=== PATIENT | female | born 1975 | race Caucasian/White ===

== ENCOUNTER → 2017-01-16 | Outpatient (CLI) | payer BC ==
--- NOTE | 2017-01-16 09:27 | XR ---
EXAMINATION TYPE: XR tibia fibula RT DATE OF EXAM: 01/16/2017 COMPARISON: NONE HISTORY: Pain TECHNIQUE: Two views are submitted. FINDINGS: The osseous structures are intact. The joint spaces are preserved. IMPRESSION: 1. No acute osseous abnormality.
== END | disposition home or self-care (01) ==
LOC: RADXRMAIN 09:11
PROVIDERS: ATTEND Family Medicine
DX: M79.604 Pain in right leg (principal)

== ENCOUNTER → 2019-01-22 | Outpatient (CLI) | payer BC ==
--- NOTE | 2019-01-24 07:56 | MM ---
Reason for exam: screening (asymptomatic). Last mammogram was performed 3 years and 1 month ago. Physical Findings: A clinical breast exam by your physician is recommended on an annual basis and results should be correlated with mammographic findings. MG 3D Screening Mammo W/Cad Bilateral CC and MLO view(s) were taken. Prior study comparison: December 13, 2015, bilateral MG screening mammo w CAD. The breast tissue is heterogeneously dense. This may lower the sensitivity of mammography. New global asymmetry left posterior upper outer quadrant likely secondary to weight loss in the interval. No persisting mass seen on 3D. Precautionary 6 month follow up recommended. ASSESSMENT: Probably benign, BI-RAD 3 RECOMMENDATION: Follow-up diagnostic mammogram of the left breast in 6 months.
== END | disposition home or self-care (01) ==
LOC: RADMAMWWP 14:18
PROVIDERS: ATTEND Family Medicine
DX: Z12.31 Encounter for screening mammogram for malignant neoplasm of breast (principal)
CPT/HCPCS: 77063; 77067

== ENCOUNTER 2020-01-07 21:17 | Emergency (ER) | payer BC ==
[2020-01-07 21:31] VITALS: BP 118/76; PULSE 107; RESP 18; TEMP 99.7
[2020-01-07] MEDS ORDERED: KETOROLAC 30 MG/ML 1 ML VIAL IVP STA (21:47)
[2020-01-07] MEDS ORDERED: ONDANSETRON 4 MG/2 ML VIAL IVP STA (21:47)
[2020-01-07] MEDS ORDERED: SODIUM CHLORIDE 0.9% 1,000 ML IV STA (21:47)
[2020-01-07 22:17] LABS: Basophils # (A) 0.1 k/uL (0-0.2); Basophils % (A) 0 %; Eosinophils # (A) 0.3 k/uL (0-0.7); Eosinophils % (A) 1 %; HCT 43.5 % (34.0-46.0); HGB 14.2 gm/dL (11.4-16.0); Lymphocytes # (A) 1.6 k/uL (1.0-4.8); Lymphocytes % (A) 7 %; MCH 30.4 pg (25.0-35.0); MCHC 32.6 g/dL (31.0-37.0); MCV 93.3 fL (80.0-100.0); Mean Platelet Volume 8.7; Monocytes # (A) 0.9 k/uL (0-1.0); Monocytes % (A) 4 %; Neutrophils # (A) 20.2 k/uL (1.3-7.7); Neutrophils % (A) 87 %; Platelet Count 245 k/uL (150-450); RBC 4.66 m/uL (3.80-5.40); RDW 13.9 % (11.5-15.5); WBC 23.4 k/uL (3.8-10.6)
--- NOTE | 2020-01-07 22:25 | ED ---
Abdominal Pain HPI - General Source: patient Mode of arrival: ambulatory Limitations: no limitations <Ava Hartmann - Last Filed: 01/07/20 22:23> <Aura Thompson - Last Filed: 01/08/20 04:43> - General Chief Complaint: Abdominal Pain Stated Complaint: Abdominal Pain Time Seen by Provider: 01/07/20 21:35 - History of Present Illness Initial Comments: Patient is a 44-year-old female presenting to the emergency Department with complaints of abdominal pain since about 4 PM this evening. Patient states she did notice right-sided abdominal pain around 4 PM, took a few ibuprofen and went to bed. Patient states the pain woke her up again just prior to arrival. She states the pain is more intense and radiating across her entire abdomen. She does admit to history of cholecystectomy, left ovarian tumor removal, as well as . She states she's been having regular bowel movements. She denies an y recent fever, chills, nausea, vomiting, diarrhea. She denies history of kidney stones. She denies any urinary complaints. She is no further complaints at this time. Upon arrival to the ER, patient was slightly tachycardia at 107, temperature is 99.7, rest of vitals normal. (Ava Hartmann) - Related Data Allergies Allergy/AdvReac Type Severity Reaction Status Date / Time No Known Allergies Allergy Verified 01/07/20 21:31 Review of Systems ROS Other: All systems not noted in ROS Statement are negative. <Ava Hartmann - Last Filed: 01/07/20 22:23> ROS Other: All systems not noted in ROS Statement are negative. <Aura Thompson - Last Filed: 01/08/20 04:43> ROS Statement: Those systems with pertinent positive or pertinent negative responses have been documented in the HPI. Past Medical History Past Medical History: Hyperlipidemia Additional Past Medical History / Comment(s): vit d History of Any Multi-Drug Resistant Organisms: None Reported Past Surgical History: Section, Cholecystectomy Additional Past Surgical History / Comment(s): ovary Past Psychological History: No Psychological Hx Reported Smoking Status: Current every day smoker Past Alcohol Use History: None Reported Past Drug Use History: None Reported <Ava Hartmann - Last Filed: 01/07/20 22:23> General Exam Limitations: no limitations <Ava Hartmann - Last Filed: 01/07/20 22:23> - General Exam Comments Initial Comments: GENERAL: Well-appearing, well-nourished and in no acute distress, but appears very uncomfortable. HEAD: Atraumatic, normocephalic. EYES: Pupils equal round and reactive to light, extraocular movements intact, sclera anicteric, conjunctiva are normal. ENT: TMs normal, nares patent, oropharynx clear without exudates. Moist mucous membranes. NECK: Normal range of motion, supple without lymphadenopathy or JVD. LUNGS: Breath sounds clear to auscultation bilaterally and equal. No wheezes rales or rhonchi. HEART: Regular rate and rhythm without murmurs, rubs or gallops. ABDOMEN: Tender to palpation of mostly the right side of the abdomen, umbilical region, mild left-sided abdominal tenderness. Soft, normoactive bowel sounds. No guarding, no rebound. No masses appreciated. : Deferred EXTREMITIES: Normal range of motion, no pitting or edema. No clubbing or cyanosis. NEUROLOGICAL: Cranial nerves II through XII grossly intact. Normal speech, normal gait. PSYCH: Normal mood, normal affect. SKIN: Warm, Dry, normal turgor, no rashes or lesions noted. (Ava Hartmann) Course Vital Signs 01/07/20 21:28 Temperature 99.7 F H Pulse Rate 107 H Respiratory 18 Rate Blood Pressure 118/76 O2 Sat by Pulse 99 Oximetry Medical Decision Making - Lab Data Result diagrams: 01/07/20 21:59 <Ava Hartmann - Last Filed: 01/07/20 22:23> - Lab Data Result diagrams: 01/07/20 21:59 01/07/20 21:59 <Aura Thompson - Last Filed: 01/08/20 04:43> - Medical Decision Making Patient care was signed out to me by Zoie KUO Patient had presented with right lower quadrant abdominal pain, labs resulted with leukocytosis no other significant abnormalities, computed tomography scan revealed a large right ovarian cysts no signs of acute abdominal pathology no signs of appendicitis. A pelvic ultrasound was obtained and revealed a 8.6 cm complex cyst which appeared to arise off the right ovary. Patient does have a history of such and had her left ovary removed for similar symptoms. Ultrasound revealed good blood flow. Patient did receive 1 dose of morphine in the ER and had resolution of her pain. She is found be sleeping for the remainder of her ER visit was comfortable with the plan for discharge home. Patient care was discussed with gynecology on-call Dr. Beltran who agrees with the plan for discharge and outpatient follow-up. (Aura Thompson) - Lab Data Lab Results 01/07/20 01/07/20 01/07/20 Range/Units 21:59 21:59 21:59 WBC 23.4 H (3.8-10.6) k/uL RBC 4.66 (3.80-5.40) m/uL Hgb 14.2 (11.4-16.0) gm/dL Hct 43.5 (34.0-46.0) % MCV 93.3 (80.0-100.0) fL MCH 30.4 (25.0-35.0) pg MCHC 32.6 (31.0-37.0) g/dL RDW 13.9 (11.5-15.5) % Plt Count 245 (150-450) k/uL Neutrophils % 87 % Lymphocytes % 7 % Monocytes % 4 % Eosinophils % 1 % Basophils % 0 % Neutrophils # 20.2 H (1.3-7.7) k/uL Lymphocytes # 1.6 (1.0-4.8) k/uL Monocytes # 0.9 (0-1.0) k/uL Eosinophils # 0.3 (0-0.7) k/uL Basophils # 0.1 (0-0.2) k/uL PT 9.5 (9.0-12.0) sec INR 0.9 (<1.2) APTT 24.2 (22.0-30.0) sec Sodium 136 L (137-145) mmol/L Potassium 4.0 (3.5-5.1) mmol/L Chloride 105 (98-107) mmol/L Carbon Dioxide 24 (22-30) mmol/L Anion Gap 7 mmol/L BUN 16 (7-17) mg/dL Creatinine 0.66 (0.52-1.04) mg/dL Est GFR (CKD-EPI)AfAm >90 (>60 ml/min/1.73 sqM) Est GFR (CKD-EPI)NonAf >90 (>60 ml/min/1.73 sqM) Glucose 127 H (74-99) mg/dL Plasma Lactic Acid Baldo (0.7-2.0) mmol/L Calcium 9.8 (8.4-10.2) mg/dL Total Bilirubin 0.7 (0.2-1.3) mg/dL AST 40 H (14-36) U/L ALT 28 (4-34) U/L Alkaline Phosphatase 67 (38-126) U/L Total Protein 7.0 (6.3-8.2) g/dL Albumin 4.3 (3.5-5.0) g/dL Amylase 47 (30-110) U/L Lipase 56 (23-300) U/L Urine Color Urine Appearance (Clear) Urine pH (5.0-8.0) Ur Specific Perkins (1.001-1.035) Urine Protein (Negative) Urine Glucose (UA) (Negative) Urine Ketones (Negative) Urine Blood (Negative) Urine Nitrite (Negative) Urine Bilirubin (Negative) Urine Urobilinogen (<2.0) mg/dL Ur Leukocyte Esterase (Negative) Urine RBC (0-5) /hpf Urine WBC (0-5) /hpf Ur Squamous Epith Cells (0-4) /hpf Urine Bacteria (None) /hpf Urine Mucus (None) /hpf 01/07/20 01/07/20 Range/Units 21:59 22:39 WBC (3.8-10.6) k/uL RBC (3.80-5.40) m/uL Hgb (11.4-16.0) gm/dL Hct (34.0-46.0) % MCV (80.0-100.0) fL MCH (25.0-35.0) pg MCHC (31.0-37.0) g/dL RDW (11.5-15.5) % Plt Count (150-450) k/uL Neutrophils % % Lymphocytes % % Monocytes % % Eosinophils % % Basophils % % Neutrophils # (1.3-7.7) k/uL Lymphocytes # (1.0-4.8) k/uL Monocytes # (0-1.0) k/uL Eosinophils # (0-0.7) k/uL Basophils # (0-0.2) k/uL PT (9.0-12.0) sec INR (<1.2) APTT (22.0-30.0) sec Sodium (137-145) mmol/L Potassium (3.5-5.1) mmol/L Chloride (98-107) mmol/L Carbon Dioxide (22-30) mmol/L Anion Gap mmol/L BUN (7-17) mg/dL Creatinine (0.52-1.04) mg/dL Est GFR (CKD-EPI)AfAm (>60 ml/min/1.73 sqM) Est GFR (CKD-EPI)NonAf (>60 ml/min/1.73 sqM) Glucose (74-99) mg/dL Plasma Lactic Acid Baldo 1.4 (0.7-2.0) mmol/L Calcium (8.4-10.2) mg/dL Total Bilirubin (0.2-1.3) mg/dL AST (14-36) U/L ALT (4-34) U/L Alkaline Phosphatase (38-126) U/L Total Protein (6.3-8.2) g/dL Albumin (3.5-5.0) g/dL Amylase (30-110) U/L Lipase (23-300) U/L Urine Color Yellow Urine Appearance Cloudy H (Clear) Urine pH 7.5 (5.0-8.0) Ur Specific Perkins 1.050 H (1.001-1.035) Urine Protein Trace H (Negative) Urine Glucose (UA) Negative (Negative) Urine Ketones Negative (Negative) Urine Blood Moderate H (Negative) Urine Nitrite Negative (Negative) Urine Bilirubin Negative (Negative) Urine Urobilinogen 2.0 (<2.0) mg/dL Ur Leukocyte Esterase Small H (Negative) Urine RBC 91 H (0-5) /hpf Urine WBC 5 (0-5) /hpf Ur Squamous Epith Cells 2 (0-4) /hpf Urine Bacteria Few H (None) /hpf Urine Mucus Rare H (None) /hpf Disposition <Ava Hartmann - Last Filed: 01/07/20 22:23> Is patient prescribed a controlled substance at d/c from ED?: No <Aura Thompson - Last Filed: 01/08/20 04:43> Clinical Impression: Ovarian cyst Disposition: HOME SELF-CARE Condition: Stable Referrals: Dequan Verde DO [Primary Care Provider] - 1-2 days
[2020-01-07 22:27] LABS: ALT 28 U/L (4-34); AST 40 U/L (14-36); African American GFR (CKD) >90 (>60 ml/min/1.73 sqM); Albumin 4.3 g/dL (3.5-5.0); Alkaline Phosphatase 67 U/L (38-126); Amylase 47 U/L (30-110); Anion Gap 7 mmol/L; Blood Urea Nitrogen 16 mg/dL (7-17); Calcium 9.8 mg/dL (8.4-10.2); Carbon Dioxide 24 mmol/L (22-30); Chloride 105 mmol/L (98-107); Glucose 127 mg/dL (74-99); INR 0.9 (<1.2); Non-African American GFR(CKD) >90 (>60 ml/min/1.73 sqM); Partial Thromboplastin Time 24.2 sec (22.0-30.0); Prothrombin Time 9.5 sec (9.0-12.0); Sodium 136 mmol/L (137-145); Total Bilirubin 0.7 mg/dL (0.2-1.3)
[2020-01-07 22:51] LABS: Appearance,Urine Cloudy (Clear); Bacteria,Urine Few /hpf; Bilirubin,Urine Negative (Negative); Blood,Urine Moderate (Negative); Color,Urine Yellow; Glucose,Urine (UA) Negative (Negative); Ketones,Urine Negative (Negative); Leukocyte Esterase,Urine Small (Negative); Mucus,Urine Rare /hpf; Nitrite,Urine Negative (Negative); PH, Urine 7.5 (5.0-8.0); Protein,Urine Trace (Negative); RBC,Urine 91 /hpf (0-5); Squamous Epithelial Cell,Urine 2 /hpf (0-4); WBC,Urine 5 /hpf (0-5)
[2020-01-07] MEDS ORDERED: MORPHINE SULFATE 4 MG/ML SYRINGE ONE (23:50)
[2020-01-07] MEDS ORDERED: ACET/COD 300 MG/30 MG STARTER PACK 6 TAB BTL PO ONE (23:50)
--- NOTE | 2020-01-08 03:46 | CT ---
EXAMINATION TYPE: CT abdomen pelvis w con DATE OF EXAM: 01/07/2020 COMPARISON: None HISTORY: Generalized pain, worse on the right with nausea and constipation. CT DLP: 1404.8 mGycm Automated exposure control for dose reduction was used. CONTRAST: Performed with IV Contrast, patient injected with 100 mL of Isovue 300. The lung bases are clear. There is no pleural effusion. Heart size is normal. There is no pericardial effusion. spleen pancreas stomach appear normal. Bile ducts are not dilated. There is cholecystectomy. Liver i s enlarged and measures 26 cm.. There is no adrenal mass. Kidneys show satisfactory contrast opacification. There is no hydronephrosi s. There is 1 cm cortical cyst interpolar right kidney. Delayed images show normal renal excretion. U reters are not dilated. There is no retroperitoneal adenopathy. Bladder distends smoothly. Uterus is anteverted. There is multiseptated cystic mass in the pelvis on the right side that measures 9.3 x 5 cm. There is no free fluid in the pelvis. There is no inguinal hernia. There is no mesenteric edema. There is no ascites or free air. There is no bowel obstruction. Appendi x appears normal. Appendix partly filled with air. Lumbar vertebra have normal alignment. There is vacuum disc at L5-S1. There is no compression fractur e. I see no focal bone destruction. The bony pelvis appears intact. There is 2 cm area of osteosclero sis in the lateral mass of the sacrum on the right side adjacent to the sacroiliac joint that could r elate to fibrous dysplasia. IMPRESSION: No sign of acute abdomen and pelvis. Normal appendix. Hepatomegaly. Multiseptated cystic right side pelvic mass is probably enlarged right ovary. Follow-up is recommende d in view of the size.
--- NOTE | 2020-01-08 08:47 | US ---
EXAM: US Pelvis Transabdominal and Transvaginal, Complete CLINICAL HISTORY: CT abnormal TECHNIQUE: Real-time complete transabdominal and transvaginal pelvic ultrasound with image documentation. Transvaginal imaging was used for better evaluation of the endometrium and adnexa. COMPARISON: CT 01/07/20 FINDINGS: Uterus/cervix: Uterus: Anteverted heterogeneous uterus measures 9.9 x 6.1 x 5.6 cm. Endometrium measures 1.05 cm No myometrial mass. Right ovary: Right ovary measures 4.6 x 2.6 x 3.7 cm. Indeterminate 8. 6 cm avascular complex cystic structure or clustered cysts posterior to the uterus is favored to be arising from the right adnexum, given appearance on accompanying CTA. Normal blood flow. Left ovary: The left ovary is not discretely visualized. Free fluid: No free fluid. Bladder: Not seen. IMPRESSION: 1. Indeterminate 8.6 cm complex left adnexal cystic structure or clustered cysts posterior to the uterus is favored to be arising from the right adnexum on recent CT. Consider gynecologic consultation. 2. The left ovary was not visualized.
== END 2020-01-08 03:50 | disposition home or self-care (01) ==
LOC: EC 21:17
DX: N83.201 Unspecified ovarian cyst, right side (principal); D72.829 Elevated white blood cell count, unspecified; F17.200 Nicotine dependence, unspecified, uncomplicated; Z90.721 Acquired absence of ovaries, unilateral; Z90.49 Acquired absence of other specified parts of digestive tract; Z86.018 Personal history of other benign neoplasm
CPT/HCPCS: 96374; 96361 ×6; 99284; 36415; 80053; 82150; 83605; 83690; 85025; 85610; 85730; 81001; 93975; 76830; 74177; J1885; Q9967

== ENCOUNTER 2020-07-16 04:20 | Emergency (ER) | payer BC ==
[2020-07-16] MEDS ORDERED: MORPHINE SULFATE 4 MG/ML SYRINGE IV STA (04:26)
[2020-07-16] MEDS ORDERED: SODIUM CHLORIDE 0.9% 1,000 ML IV STA (04:26)
--- NOTE | 2020-07-16 04:41 | ED ---
Abdominal Pain HPI - General Chief Complaint: Abdominal Pain Stated Complaint: abd pain Time Seen by Provider: 07/16/20 04:26 Source: patient, RN notes reviewed, old records reviewed Mode of arrival: ambulatory Limitations: no limitations - History of Present Illness Initial Comments: This is a 44 show female DF for abdominal pain. She has history of significant ovarian issues history of kidney stones and history of some chronic pain. 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 This feels the same of maybe a little bit worse. Began earlier this morning no vaginal bleeding no other complaints no fevers no nausea vomiting or diarrhea. Patient has 4 children has no plans to have anymore MD Complaint: abdominal pain -: hour(s) Location: RLQ, suprapubic Radiation: suprapubic Migration to: suprapubic Severity: moderate Severity scale (1-10): 7 Consistency: constant Improves With: nothing Worsens With: nothing Associated Symptoms: nausea - Related Data Home Medications Medication Instructions Recorded Confirmed Cholecalciferol [Vitamin D3 (25 5,000 unit PO DAILY 01/08/20 01/08/20 Mcg = 1000 Iu)] Multivitamins, Thera [Multivitamin 1 tab PO DAILY 01/08/20 01/08/20 (formulary)] Simvastatin [Zocor] 20 mg PO DAILY 01/08/20 01/08/20 Allergies Allergy/AdvReac Type Severity Reaction Status Date / Time No Known Allergies Allergy Verified 07/16/20 04:24 Review of Systems ROS Statement: Those systems with pertinent positive or pertinent negative responses have been documented in the HPI. ROS Other: All systems not noted in ROS Statement are negative. Past Medical History Past Medical History: Hyperlipidemia Additional Past Medical History / Comment(s): vit d, endometreosis History of Any Multi-Drug Resistant Organisms: None Reported Past Surgical History: Section, Cholecystectomy Additional Past Surgical History / Comment(s): ovary Past Psychological History: No Psychological Hx Reported Smoking Status: Current every day smoker Past Alcohol Use History: None Reported Past Drug Use History: None Reported General Exam Limitations: no limitations General appearance: alert, in no apparent distress Head exam: Present: atraumatic, normocephalic, normal inspection Eye exam: Present: normal appearance, PERRL, EOMI. Absent: scleral icterus, conjunctival injection, periorbital swelling ENT exam: Present: normal exam, mucous membranes moist Neck exam: Present: normal inspection. Absent: tenderness, meningismus, lymphadenopathy Respiratory exam: Present: normal lung sounds bilaterally. Absent: respiratory distress, wheezes, rales, rhonchi, stridor Cardiovascular Exam: Present: regular rate, normal rhythm, normal heart sounds. Absent: systolic murmur, diastolic murmur, rubs, gallop, clicks GI/Abdominal exam: Present: soft, normal bowel sounds. Absent: distended, tenderness, guarding, rebound, rigid Extremities exam: Present: normal inspection, full ROM, normal capillary refill. Absent: tenderness, pedal edema, joint swelling, calf tenderness Back exam: Present: normal inspection Neurological exam: Present: alert, oriented X3, CN II-XII intact Psychiatric exam: Present: normal affect, normal mood Skin exam: Present: warm, dry, intact, normal color. Absent: rash Course Vital Signs 07/16/20 07/16/20 04:20 05:42 Temperature 98.6 F Pulse Rate 74 69 Respiratory 20 18 Rate Blood Pressure 155/78 124/71 O2 Sat by Pulse 98 98 Oximetry - Reevaluation(s) Reevaluation #1: 07/16/20 06:14 Medical records reviewed Reevaluation #2: 07/16/20 06:14 Patient does have current pain control Reevaluation #3: 07/16/20 06:14 Patient is informed results and questions are answered Medical Decision Making - Medical Decision Making 44 female DF for evaluation patient has significant amount of pain here in the ER although that is resolved. Recurrent ovarian cyst, will follow-up with OB - Lab Data Result diagrams: 07/16/20 04:38 07/16/20 04:38 Lab Results 07/16/20 07/16/20 07/16/20 Range/Units 04:38 04:38 04:38 WBC 12.5 H (3.8-10.6) k/uL RBC 5.01 (3.80-5.40) m/uL Hgb 15.8 (11.4-16.0) gm/dL Hct 45.7 (34.0-46.0) % MCV 91.2 (80.0-100.0) fL MCH 31.6 (25.0-35.0) pg MCHC 34.7 (31.0-37.0) g/dL RDW 12.7 (11.5-15.5) % Plt Count 253 (150-450) k/uL MPV 8.4 Neutrophils % 72 % Lymphocytes % 17 % Monocytes % 5 % Eosinophils % 3 % Basophils % 1 % Neutrophils # 9.0 H (1.3-7.7) k/uL Lymphocytes # 2.1 (1.0-4.8) k/uL Monocytes # 0.7 (0-1.0) k/uL Eosinophils # 0.4 (0-0.7) k/uL Basophils # 0.1 (0-0.2) k/uL Sodium (137-145) mmol/L Potassium (3.5-5.1) mmol/L Chloride (98-107) mmol/L Carbon Dioxide (22-30) mmol/L Anion Gap mmol/L BUN (7-17) mg/dL Creatinine (0.52-1.04) mg/dL Est GFR (CKD-EPI)AfAm (>60 ml/min/1.73 sqM) Est GFR (CKD-EPI)NonAf (>60 ml/min/1.73 sqM) Glucose (74-99) mg/dL Plasma Lactic Acid Baldo (0.7-2.0) mmol/L Calcium (8.4-10.2) mg/dL Total Bilirubin (0.2-1.3) mg/dL AST (14-36) U/L ALT (4-34) U/L Alkaline Phosphatase (38-126) U/L Total Protein (6.3-8.2) g/dL Albumin (3.5-5.0) g/dL Amylase (30-110) U/L Lipase (23-300) U/L Urine Color Yellow Urine Appearance Cloudy H (Clear) Urine pH 5.5 (5.0-8.0) Ur Specific Premium 1.033 (1.001-1.035) Urine Protein 1+ H (Negative) Urine Glucose (UA) Negative (Negative) Urine Ketones Trace H (Negative) Urine Blood Large H (Negative) Urine Nitrite Negative (Negative) Urine Bilirubin Negative (Negative) Urine Urobilinogen 2.0 (<2.0) mg/dL Ur Leukocyte Esterase Small H (Negative) Urine RBC 3 (0-5) /hpf Urine WBC 4 (0-5) /hpf Ur Squamous Epith Cells 15 H (0-4) /hpf Urine Bacteria Occasional H (None) /hpf Urine Mucus Many H (None) /hpf Urine HCG, Qual Not Detected (Not Detectd) 07/16/20 07/16/20 Range/Units 04:38 04:38 WBC (3.8-10.6) k/uL RBC (3.80-5.40) m/uL Hgb (11.4-16.0) gm/dL Hct (34.0-46.0) % MCV (80.0-100.0) fL MCH (25.0-35.0) pg MCHC (31.0-37.0) g/dL RDW (11.5-15.5) % Plt Count (150-450) k/uL MPV Neutrophils % % Lymphocytes % % Monocytes % % Eosinophils % % Basophils % % Neutrophils # (1.3-7.7) k/uL Lymphocytes # (1.0-4.8) k/uL Monocytes # (0-1.0) k/uL Eosinophils # (0-0.7) k/uL Basophils # (0-0.2) k/uL Sodium 136 L (137-145) mmol/L Potassium 4.3 (3.5-5.1) mmol/L Chloride 105 (98-107) mmol/L Carbon Dioxide 24 (22-30) mmol/L Anion Gap 7 mmol/L BUN 17 (7-17) mg/dL Creatinine 0.60 (0.52-1.04) mg/dL Est GFR (CKD-EPI)AfAm >90 (>60 ml/min/1.73 sqM) Est GFR (CKD-EPI)NonAf >90 (>60 ml/min/1.73 sqM) Glucose 104 H (74-99) mg/dL Plasma Lactic Acid Baldo 1.6 (0.7-2.0) mmol/L Calcium 9.9 (8.4-10.2) mg/dL Total Bilirubin 0.5 (0.2-1.3) mg/dL AST 28 (14-36) U/L ALT 22 (4-34) U/L Alkaline Phosphatase 89 (38-126) U/L Total Protein 7.3 (6.3-8.2) g/dL Albumin 4.3 (3.5-5.0) g/dL Amylase 59 (30-110) U/L Lipase 91 (23-300) U/L Urine Color Urine Appearance (Clear) Urine pH (5.0-8.0) Ur Specific Premium (1.001-1.035) Urine Protein (Negative) Urine Glucose (UA) (Negative) Urine Ketones (Negative) Urine Blood (Negative) Urine Nitrite (Negative) Urine Bilirubin (Negative) Urine Urobilinogen (<2.0) mg/dL Ur Leukocyte Esterase (Negative) Urine RBC (0-5) /hpf Urine WBC (0-5) /hpf Ur Squamous Epith Cells (0-4) /hpf Urine Bacteria (None) /hpf Urine Mucus (None) /hpf Urine HCG, Qual (Not Detectd) - Radiology Data Radiology results: report reviewed (CT of the abdomen and pelvis positive for significant ovarian cyst), image reviewed Disposition Clinical Impression: Ovarian cyst, Abdominal pain Disposition: HOME SELF-CARE Condition: Good Instructions (If sedation given, give patient instructions): Abdominal Pain (ED) Is patient prescribed a controlled substance at d/c from ED?: No Referrals: Dequan Verde DO [Primary Care Provider] - 1-2 days
[2020-07-16 05:09] LABS: Appearance,Urine Cloudy (Clear); Bacteria,Urine Occasional /hpf; Bilirubin,Urine Negative (Negative); Blood,Urine Large (Negative); Color,Urine Yellow; Glucose,Urine (UA) Negative (Negative); Ketones,Urine Trace (Negative); Leukocyte Esterase,Urine Small (Negative); Mucus,Urine Many /hpf; Nitrite,Urine Negative (Negative); PH, Urine 5.5 (5.0-8.0); Protein,Urine 1+ (Negative); RBC,Urine 3 /hpf (0-5); Specific Gravity,Urine 1.033 (1.001-1.035); Squamous Epithelial Cell,Urine 15 /hpf (0-4); WBC,Urine 4 /hpf (0-5)
[2020-07-16 05:10] LABS: ALT 22 U/L (4-34); AST 28 U/L (14-36); African American GFR (CKD) >90 (>60 ml/min/1.73 sqM); Albumin 4.3 g/dL (3.5-5.0); Alkaline Phosphatase 89 U/L (38-126); Amylase 59 U/L (30-110); Anion Gap 7 mmol/L; Blood Urea Nitrogen 17 mg/dL (7-17); Calcium 9.9 mg/dL (8.4-10.2); Carbon Dioxide 24 mmol/L (22-30); Chloride 105 mmol/L (98-107); Glucose 104 mg/dL (74-99); Lipase 91 U/L (23-300); Non-African American GFR(CKD) >90 (>60 ml/min/1.73 sqM); Potassium 4.3 mmol/L (3.5-5.1); Sodium 136 mmol/L (137-145); Total Bilirubin 0.5 mg/dL (0.2-1.3); Total Protein 7.3 g/dL (6.3-8.2)
[2020-07-16 05:23] LABS: Basophils # (A) 0.1 k/uL (0-0.2); Basophils % (A) 1 %; Eosinophils # (A) 0.4 k/uL (0-0.7); Eosinophils % (A) 3 %; HCT 45.7 % (34.0-46.0); HGB 15.8 gm/dL (11.4-16.0); Lymphocytes # (A) 2.1 k/uL (1.0-4.8); Lymphocytes % (A) 17 %; MCH 31.6 pg (25.0-35.0); MCHC 34.7 g/dL (31.0-37.0); MCV 91.2 fL (80.0-100.0); Mean Platelet Volume 8.4; Monocytes # (A) 0.7 k/uL (0-1.0); Monocytes % (A) 5 %; Neutrophils % (A) 72 %; Platelet Count 253 k/uL (150-450); RBC 5.01 m/uL (3.80-5.40); RDW 12.7 % (11.5-15.5); WBC 12.5 k/uL (3.8-10.6)
--- NOTE | 2020-07-16 05:35 | CT ---
EXAM: CT Abdomen and Pelvis Without Intravenous Contrast CLINICAL HISTORY: Right lower quadrant pain that moves to right flank. TECHNIQUE: Axial computed tomography images of the abdomen and pelvis without intravenous contrast. CTDI is 14.4 mGy and DLP is 758.9 mGy-cm. This CT exam was performed using one or more of the following dose reduction techniques: automated exposure control, adjustment of the mA and/or kV according to patient size, and/or use of iterative reconstruction technique. COMPARISON: 01/07/2020. FINDINGS: Lung bases: Unremarkable. No mass. No consolidation. ABDOMEN: Liver: Hepatomegaly, measuring up to 24.8 cm in greatest craniocaudad dimension, as seen on the comparison study. Gallbladder and bile ducts: Status post cholecystectomy. No ductal dilation. Pancreas: Unremarkable. No ductal dilation. Spleen: Unremarkable. No splenomegaly. Adrenals: Unremarkable. No mass. Kidneys and ureters: Probable cortical scarring involving the midpole of the right kidney, as seen on the comparison. No obstructing stones. No hydronephrosis. Stomach and bowel: Colonic diverticulosis. Mild increased stool burden throughout the colon. No obstruction. No mucosal thickening. PELVIS: Appendix: No findings to suggest acute appendicitis. Bladder: Unremarkable. No stones. Reproductive: Enlarged complex right adnexal mass again noted, measuring up to 7.4 cm in greatest axial dimension, suboptimally evaluate on this study. ABDOMEN and PELVIS: Intraperitoneal space: Unremarkable. No free air. No significant fluid collection. Bones/joints: Bilateral sacroiliitis. No acute fracture. No dislocation. Soft tissues: Unremarkable. Vasculature: Unremarkable. No abdominal aortic aneurysm. Lymph nodes: Unremarkable. No enlarged lymph nodes. IMPRESSION: 1. Enlarged complex right adnexal mass again noted, measuring up to 7.4 cm in greatest axial dimension, suboptimally evaluate on this study. Pelvic ultrasound is recommended for further evaluation. 2. Hepatomegaly. 3. Status post cholecystectomy. 4. Colonic diverticulosis. 5. Mild increased stool burden throughout the colon.
[2020-07-16 05:43] VITALS: RESP 18
[2020-07-16] MEDS ORDERED: ACET/COD 300 MG/30 MG STARTER PACK 6 TAB BTL PO STA (06:07)
[2020-07-16] MEDS ORDERED: KETOROLAC 15 MG/ML 1 ML VIAL IVP STA (06:07)
[2020-07-16] MEDS ORDERED: traMADol 50 MG STARTER PACK 3 TAB BTL PO STA (06:07)
[2020-07-16 07:09] VITALS: BP 119/69; PULSE 64; TEMP 98.2
== END 2020-07-16 07:09 | disposition home or self-care (01) ==
LOC: EC 04:20
DX: N83.209 Unspecified ovarian cyst, unspecified side (principal); E78.5 Hyperlipidemia, unspecified; F17.200 Nicotine dependence, unspecified, uncomplicated; Z79.899 Other long term (current) drug therapy; Z90.49 Acquired absence of other specified parts of digestive tract; Z98.890 Other specified postprocedural states; Z87.442 Personal history of urinary calculi
CPT/HCPCS: 36415; 80053; 82150; 83605; 83690; 85025; 81001; 81025; 74176; 99285; 96374; 96375; 96361; J2270; J1885

== ENCOUNTER → 2020-09-08 | Outpatient (CLI) | payer BC ==
--- NOTE | 2020-09-08 19:26 | CT ---
EXAMINATION TYPE: CT abdomen pelvis w con DATE OF EXAM: 09/08/2020 COMPARISON: CT 07/16/2020 and prior. Ultrasound 01/08/2020. HISTORY: RLQ pain CT DLP: 856.6 mGycm Automated exposure control for dose reduction was used. TECHNIQUE: Helical acquisition of images was performed from the lung bases through the pelvis. CONTRAST: Performed with Oral Contrast and with IV Contrast, patient injected with 100 mL of Isovue 300. FINDINGS: LUNG BASES: No significant abnormality is appreciated. LIVER/GB: No significant abnormality is appreciated. Cholecystectomy is seen. PANCREAS: No significant abnormality is seen. SPLEEN: No significant abnormality is seen. ADRENALS: No significant abnormality is seen. KIDNEYS: No significant abnormality is seen. FREE AIR: No free air is visualized. RETROPERITONEAL ADENOPATHY: None visualized REPRODUCTIVE ORGANS: Redemonstration of 7.8 x 5.8 cm complex right adnexal cystic mass. URINARY BLADDER: No significant abnormality is seen. PELVIC ADENOPATHY: None visualized. OSSEOUS STRUCTURES: No acute abnormality is seen. Moderate to severe L5-S1 spondylosis. BOWEL: No significant abnormality is seen. Normal appendix. OTHER: None. IMPRESSION: REDEMONSTRATED 7.8 CM COMPLEX RIGHT ADNEXAL CYSTIC MASS, SIMILAR TO THE PRIOR STUDY. OTHERWISE NO ACUTE ABNORMALITY.
== END | disposition home or self-care (01) ==
LOC: RADCTMAIN 15:37
PROVIDERS: ATTEND Family Medicine
DX: R19.00 Intra-abdominal and pelvic swelling, mass and lump, unspecified site (principal)
CPT/HCPCS: 74177; Q9967

== ENCOUNTER → 2020-09-14 | Outpatient (CLI) | payer BC ==
--- NOTE | 2020-09-14 13:57 | US ---
EXAMINATION TYPE: US pelvic complete DATE OF EXAM: 09/14/2020 COMPARISON: CT 2020, US 2019 CLINICAL HISTORY: N92.0 MENORRHAGIA. Ongoing right pelvic pain, known right adnexal cystic mass, abno rmal cycles, 5, para 4, miscarriage 1, history of left oophorectomy and 2 c-sections. TECHNIQUE: Transabdominal sonographic images of the pelvis were acquired. Transvaginal sonographic i mages were medically necessary to better assess the following anatomy: endometrium and right adnexa Date of LMP: 08/13/2020 EXAM MEASUREMENTS: Uterus: 10.0 x 4.3 x 5.5 cm Endometrial Stripe: 0.5 cm Right Ovary: Not identified 1. Uterus: borderline enlarged, anteverted, heterogeneous 2. Endometrium: visualized portion appears wnl 3. Right Ovary: Not discretely identified. The right adnexal region are somewhat lobular measuring 8 .5 x 3.5 x 6.1cm in size. 4. Left Ovary: surgically absent 5. Bilateral Adnexa: 7.8 x 4.0 x 5.3cm complex cystic area right adnexa 6. Posterior cul-de-sac: wnl IMPRESSION: 1. Enlarged Adnexal masslike area. This appears changed from CT examination. Enlarged ovarian mass ma y be present. Correlate with laboratory results. 2. MRI may be useful for additional delineation of the ovary from the uterus.
== END | disposition home or self-care (01) ==
LOC: RADUSWWP 12:32
PROVIDERS: ATTEND Obstetrics & Gynecology
DX: N92.0 Excessive and frequent menstruation with regular cycle (principal)
CPT/HCPCS: 76830; 76856

== ENCOUNTER → 2020-09-27 | Outpatient (CLI) | payer BC ==
[2020-09-27 12:54] LABS: Basophils # (A) 0.1 k/uL (0-0.2); Basophils % (A) 1 %; Eosinophils # (A) 0.3 k/uL (0-0.7); Eosinophils % (A) 2 %; HCT 48.9 % (34.0-46.0); HGB 16.7 gm/dL (11.4-16.0); Lymphocytes # (A) 2.7 k/uL (1.0-4.8); Lymphocytes % (A) 15 %; MCH 31.3 pg (25.0-35.0); MCHC 34.1 g/dL (31.0-37.0); MCV 91.8 fL (80.0-100.0); Mean Platelet Volume 8.8; Monocytes # (A) 0.8 k/uL (0-1.0); Monocytes % (A) 5 %; Neutrophils # (A) 13.3 k/uL (1.3-7.7); Neutrophils % (A) 77 %; Platelet Count 220 k/uL (150-450); RBC 5.33 m/uL (3.80-5.40); RDW 13.4 % (11.5-15.5); WBC 17.3 k/uL (3.8-10.6)
[2020-09-27 13:06] LABS: African American GFR (CKD) >90 (>60 ml/min/1.73 sqM); Anion Gap 10 mmol/L; Blood Urea Nitrogen 15 mg/dL (7-17); Calcium 9.9 mg/dL (8.4-10.2); Carbon Dioxide 26 mmol/L (22-30); Chloride 100 mmol/L (98-107); Glucose 83 mg/dL (74-99); Non-African American GFR(CKD) >90 (>60 ml/min/1.73 sqM); Potassium 4.2 mmol/L (3.5-5.1); Sodium 136 mmol/L (137-145)
== END | disposition home or self-care (01) ==
LOC: LABWHC1 11:26
PROVIDERS: ATTEND Obstetrics & Gynecology
DX: Z01.812 Encounter for preprocedural laboratory examination (principal)
CPT/HCPCS: 36415; 80048; 85025; 86850; 86900; 86901

== ENCOUNTER 2020-10-04 05:41 | Inpatient (IN) | payer BC ==
[2020-09-30 09:34] VITALS: BMI 30.7
[~2020-10-04 05:41] MED LIST: DEXAMETHASONE SOD PHOSPHATE 4 MG/ML 1 ML VIAL IV ONE; LIDOCAINE 1% (10MG/ML) FOR IV START INTRADERMA PRN; MIDAZOLAM 2 MG/2 ML VIAL IV PRN; ONDANSETRON 4 MG/2 ML VIAL IVP ONE
[2020-10-04] MEDS: LACTATED RINGERS 1,000 ML IV SCH ×2 (06:38→16:40)
--- NOTE | 2020-10-04 06:55 | P.HPOB ---
History of Present Illness H&P Date: 10/04/20 Chief Complaint: Pelvic pain 44-year-old presents for total laparoscopic hysterectomy and right salpingo-oophorectomy, possible CHUY RSO and diagnostic cystoscopy. She's been having pelvic pain for a while now and had an endometrioma removed along with her left ovary a couple years ago. She has a right ovarian cyst that comes and goes up to 8.6 cm at times. Review of Systems All systems: negative Constitutional: Denies chills, Denies fever Eyes: denies blurred vision, denies pain Ears, nose, mouth and throat: Denies headache, Denies sore throat Cardiovascular: Denies chest pain, Denies shortness of breath Respiratory: Denies cough Gastrointestinal: Denies abdominal pain, Denies diarrhea, Denies nausea, Denies vomiting Genitourinary: Denies dysuria, Denies hematuria Musculoskeletal: Denies myalgias Integumentary: Denies pruritus, Denies rash Neurological: Denies numbness, Denies weakness Psychiatric: Denies anxiety, Denies depression Endocrine: Denies fatigue, Denies weight change Past Medical History Past Medical History: Hyperlipidemia Additional Past Medical History / Comment(s): endometriosis, large ovarian cyst right ovary History of Any Multi-Drug Resistant Organisms: None Reported Past Surgical History: Section, Cholecystectomy Additional Past Surgical History / Comment(s): left oophorectomy Past Anesthesia/Blood Transfusion Reactions: Postoperative Nausea & Vomiting (PONV) Smoking Status: Current every day smoker Medications and Allergies Home Medications Medication Instructions Recorded Confirmed Type Cholecalciferol [Vitamin D3 (25 5,000 unit PO DAILY 01/08/20 09/30/20 History Mcg = 1000 Iu)] Multivitamins, Thera [Multivitamin 1 tab PO DAILY 01/08/20 09/30/20 History (formulary)] Simvastatin [Zocor] 20 mg PO DAILY 01/08/20 09/30/20 History Acetaminophen-Codeine 300-30mg 1 tab PO Q6H PRN 09/30/20 09/30/20 History [Tylenol w/codeine #3] Ascorbic Acid [Vitamin C] 500 mg PO DAILY 09/30/20 09/30/20 History Calcium Carbonate [Calcium] 600 mg PO DAILY 09/30/20 09/30/20 History traMADol HCL [Ultram] 50 mg PO Q6HR PRN 09/30/20 09/30/20 History Allergies Allergy/AdvReac Type Severity Reaction Status Date / Time No Known Allergies Allergy Verified 10/04/20 05:57 Exam Osteopathic Statement: *. No significant issues noted on an osteopathic structural exam other than those noted in the History and Physical/Consult. Vital Signs Temp Pulse Resp BP Pulse Ox 10/04/20 06:22 97.8 F 70 16 124/58 98 Intake and Output 10/03/20 10/03/20 10/04/20 14:59 22:59 06:59 Other: Weight 90.6 kg Heart: Regular rate and rhythm Lungs: Clear to auscultation bilaterally Abdomen: Soft, nontender Extremities: Negative Homans sign Assessment and Plan (1) Endometriosis Current Visit: Yes Status: Acute Code(s): N80.9 - ENDOMETRIOSIS, UNSPECIFIED SNOMED Code(s): 611084767 (2) Pelvic pain Current Visit: Yes Status: Acute Code(s): R10.2 - PELVIC AND PERINEAL PAIN SNOMED Code(s): 30811464 (3) Complex cyst of right ovary Current Visit: Yes Status: Acute Code(s): N83.291 - OTHER OVARIAN CYST, RIGHT SIDE SNOMED Code(s): 09074948137927726 Plan: [facility] RSO with da Aristeo and diagnostic cystoscopy, possible [facility] R[facility]
[2020-10-04 06:58] LABS: HCT 46.1 % (34.0-46.0); HGB 15.8 gm/dL (11.4-16.0); MCH 31.7 pg (25.0-35.0); MCHC 34.3 g/dL (31.0-37.0); MCV 92.6 fL (80.0-100.0); Mean Platelet Volume 8.7; Platelet Count 212 k/uL (150-450); RBC 4.98 m/uL (3.80-5.40); RDW 13.6 % (11.5-15.5); WBC 15.1 k/uL (3.8-10.6)
[2020-10-04] MEDS ORDERED: MIDAZOLAM 2 MG/2 ML VIAL IVP ONE (07:10)
[2020-10-04] MEDS ORDERED: PROPOFOL 10 MG/ML 20 ML VIAL IV ONE (07:24)
[2020-10-04] MEDS ORDERED: SUCCINYLCHOLINE CHLORIDE 100 MG/5 ML SYR IV ONE (07:24)
[2020-10-04] MEDS ORDERED: NEOSTIGMINE 1 MG/ML 10 ML VIAL ONE (07:24)
[2020-10-04] MEDS ORDERED: GLYCOPYRROLATE 0.2 MG/ML 2 ML VIAL ONE (07:24)
[2020-10-04] MEDS ORDERED: ROCURONIUM 10 MG/ML (5 ML VIAL) IV ONE (07:24)
[2020-10-04] MEDS ORDERED: KETOROLAC 15 MG/ML 1 ML VIAL ONE (07:24)
[2020-10-04] MEDS ORDERED: HYDROmorphone (PF) 1 MG/ML ONE (07:24)
[2020-10-04] MEDS ORDERED: fentaNYL (PF) 50 MCG/ML 2 ML AMP ONE (07:24)
[2020-10-04] MEDS ORDERED: MIDAZOLAM 2 MG/2 ML VIAL ONE (07:24)
[2020-10-04] MEDS ORDERED: ROPIVACAINE 5 MG/ML 30 ML VIAL ONE (07:24)
[2020-10-04] MEDS ORDERED: BUPIVACAINE (PF) 0.25% 30 ML VIAL SQ ONE ×2 (07:46)
[2020-10-04] MEDS ORDERED: LACTATED RINGERS 1,000 ML IV ONE ×2 (08:29→09:24)
[2020-10-04] MEDS ORDERED: Acetaminophen-Codeine 300-30mg TAB PO PRN ×3 (09:30→10:54)
[2020-10-04] MEDS: HYDROmorphone 0.5 MG/0.5 ML SYRINGE IVP PRN ×2 (10:02→10:15)
--- NOTE | 2020-10-04 10:41 | P.ANPRN ---
Procedure Note - Anesthesia - Nerve Block Performed Bilateral Erector Spinae Single Time Out Performed: Yes Date of Procedure: 10/04/20 Procedure Start Time: :09 Procedure Stop Time: 07:16 Location of Patient: PreOp Indication: Acute Post-Operative Pain, Requested by Surgeon Sedation Type: Sedate with meaningful contact maintained Preparation: Sterile Prep Position: Prone Needle Gauge: 21 Ultrasound used to visualize needle placement: Yes Ultrasound used to observe medication spread: Yes Blood Aspirated: No Pain Paresthesia on Injection Noted: No Resistance on Injection: Normal Image Stored and Saved: Yes Events: Uneventful and Well Tolerated (ropi .25% 30cc bilaterally)
[2020-10-04] MEDS ORDERED: SIMETHICONE 80 MG CHEWABLE PO PRN (10:54)
[2020-10-04] MEDS ORDERED: ZOLPIDEM 5 MG TAB PO PRN (10:54)
[2020-10-04] MEDS ORDERED: ONDANSETRON 4 MG/2 ML VIAL IVP PRN (10:54)
[2020-10-04] MEDS ORDERED: diphenhydrAMINE 50 MG/ML 1 ML VIAL IVP PRN (10:54)
[2020-10-04] MEDS ORDERED: METOCLOPRAMIDE 5 MG/ML 2 ML VIAL IVP PRN (10:54)
--- NOTE | 2020-10-04 12:47 | P.OP ---
Date of Procedure: 10/04/20 Preoperative Diagnosis: 1. pelvic pain 2. right ovarian cyst 3. endometriosis Postoperative Diagnosis: 1. pelvic pain 2. right ovarian cyst 3. endometriosis 4. bowel adhesions Procedure(s) Performed: Diagnostic laparoscopy, Abdominal supracervical hysterectomy, right salpingo- oopherectomy, lysis of adhesions Anesthesia: HEMA Surgeon: Amira Beltran [employer] Specialist #1: Efraín Tobin Estimated Blood Loss (ml): 500 IV fluids (ml): 2,000 Urine output (ml): 100 Pathology: other (uterus, right tube and ovary with endometrioma) Condition: stable Disposition: PACU Operative Findings: bowel adhesions to the left side of the uterus and posterior cul de sac. right endometrioma and inflamed right fallopian tube-both adhesed to the posterior aspect of the uterus. scarred bladder to the cervix. Description of Procedure: Patient taken the operating room where general anesthesia was obtained without difficulty. She is prepped and draped in normal sterile fashion dorsal lithotomy position, legs placed in the Shlomo stirrups. Weighted speculum placed in the vagina and the anterior lip the cervix was grasped with single-tooth tenaculum. The uterus sounded to 10 cm and the cervix diameter was 4 cm. The appropriate manipulator tip and ring were placed on the Breann manipulator. The Breann manipulator was then placed in the uterus. Rousseau catheter was also placed. Attention was then turned to the abdomen and gloves were changed. A 5 mm supraumbilical incision was made the scalpel and a 5 mm optical trocar was placed under direct visualization. 10 cm to the right of this and 2 cm down a 5 mm incision was made and 8 mm da Aristeo port was placed under direct visualization. Same measurements on the opposite side of the patient's abdomen, the 5 mm incision was made and 8 mm da Aristeo port was placed under direct visualization. In the left upper quadrant a 10 mm incision was made and a 10 mm optical trocar was placed under direct visualization. The 5 mm optical trocar was then replaced with the 8 mm da Aristeo camera port. The robot was docked on patient's right side. The camera was introduced and then the monopolar curved scissor and [place] bipolar placed under direct visualization. I broke scrub and went to the physician console. As uterus was anteverted it became clear that there were bowel adhesions to the fundus of the uterus the posterior aspect the uterus and along the left side of the uterus. There is a endometrioma coming off the right ovary attaching it felt to the posterior cul-de-sac. I attempted to start dissecting the bowel off of the posterior uterus in a blunt manner but soon became clear that the dissection needed to be blunt and since I was unable to visualize the posterior cul-de-sac freely, the decision was made to convert to open procedure. I scrubbed back in and instruments were counted appropriately. A low transverse incision was made with the scalpel carried through to the underlying layer fascia with the scalpel. The fascial incision was extended bilaterally with the Rick scissors. The superior aspect of the fascial incision was grasped with a Syl is elevated and the underlying rectus muscles dissected off with the Mayos and bluntly. Attention then turned to the inferior aspect of the same incision which in a similar fashion was grasped tented up and the underlying rectus muscles dissected off with the Mayos. The bowel was coming up between the rectus muscles already. The peritoneal incision was extended inferiorly with good visualization of the bladder. The self- retaining retractor was placed and the bowels packed away with moist laparotomy sponges. The cornua of the uterus were grasped with Colleen clamps. The bowels were dissected off in a blunt manner and with some Metzenbaums from the posterior aspect of the uterus and the left side of the uterus. Stepwise manner Anyi clamps were used to clamp cut and then suture ligate the right infundibulopelvic ligament. The right tube and ovary were then removed for better visualization. The stepwise manner down the broad ligament on both sides the Anyi clamps were used to clamp cut and then suture ligate. The uterine arteries were skeletonized and then clamped cut and suture ligated with 0 Vicryl. The entire time the bladder was being carefully dissected down. Was very firmly adhered to the lower uterine segment and then the cervix. I didn't feel that it was safe to continue to try and dissect the bladder or the bowels off the remaining cervix. Once the uterine arteries were clamped cut and suture-ligated I cut across the cervix to free the body of the uterus. Hemostasis was assured with the Bovie. The pelvis was copiously irrigated. Surgicel powder was then placed to ensure hemostasis. All instruments were removed from the pelvis. The peritoneum was reapproximated with 0 Vicryl in a running fashion. The fascia was reapproximated with 0 Vicryl in a running fashion. The subcutaneous tissue was closed with 3-0 Vicryl and this running fashion. The skin was closed with zainab. The laparoscopic incisions were closed with 4-0 Vicryl in a subcuticular fashion. Patient tolerated the procedure well, sponge and instrument counts correct 2 and she was taken to recovery room in stable condition condition
[2020-10-04] MEDS: KETOROLAC 15 MG/ML 1 ML VIAL IVP PRN ×2 (16:40→22:46)
[2020-10-04] MEDS: SENNOSIDES-DOCUSATE SODIUM 1 EACH TAB PO SCH (22:46)
[2020-10-05] MEDS: KETOROLAC 15 MG/ML 1 ML VIAL IVP PRN ×2 (05:11→11:05)
[2020-10-05] MEDS: SENNOSIDES-DOCUSATE SODIUM 1 EACH TAB PO SCH ×2 (07:33→23:37)
[2020-10-05 08:37] LABS: Basophils % (A) 0 %; Eosinophils # (A) 0.1 k/uL (0-0.7); Eosinophils % (A) 0 %; HCT 41.6 % (34.0-46.0); HGB 13.6 gm/dL (11.4-16.0); Lymphocytes # (A) 1.8 k/uL (1.0-4.8); Lymphocytes % (A) 10 %; MCH 30.3 pg (25.0-35.0); MCHC 32.6 g/dL (31.0-37.0); MCV 93.2 fL (80.0-100.0); Mean Platelet Volume 9.1; Monocytes % (A) 6 %; Neutrophils % (A) 83 %; Platelet Count 204 k/uL (150-450); RBC 4.47 m/uL (3.80-5.40); RDW 14.1 % (11.5-15.5); WBC 18.1 k/uL (3.8-10.6)
--- NOTE | 2020-10-05 08:43 | P.PN ---
Progress Note - Text Progress Note Date: 10/05/20 Status post abdominal supracervical hysterectomy with right salpingo- oophorectomy: Postop day #1 Patient seen and examined resting comfortably in bed. She is ambulating and voiding without difficulty. She is passing flatus and tolerating regular diet. She is complaining of a low bit of gas pain but the Mylicon is helping. Vital signs stable Heart regular rate and rhythm Lungs clear to auscultation bilaterally Abdomen: Soft, expected postop tenderness. Minimal ecchymosis around her abdomi nal incision, this incision is clean, dry, intact with zainab. Extremities: Negative Homans sign Assessment 1. Status post abdominal supracervical hysterectomy with right salpingo-oophorectomy postop day #1 Plan 1. Increase ambulation 2. By mouth pain medication
[2020-10-05] MEDS ORDERED: ACETAMINOPHEN TAB 325 MG TAB PO PRN (09:30)
[2020-10-05] MEDS: IBUPROFEN 600 MG TAB PO PRN ×2 (17:16→23:37)
[2020-10-06 02:55] VITALS: RESP 18
[2020-10-06] MEDS: SENNOSIDES-DOCUSATE SODIUM 1 EACH TAB PO SCH (07:43)
[2020-10-06 07:48] VITALS: BP 121/78; PULSE 85; TEMP 98.2
--- NOTE | 2020-10-06 08:54 | P.DS ---
Providers Date of admission: 10/04/20 10:00 Expected date of discharge: 10/06/20 Attending physician: Amira Beltran Primary care physician: Dequan Verde - Discharge Diagnosis(es) (1) Endometriosis Current Visit: Yes Status: Acute (2) Pelvic pain Current Visit: Yes Status: Acute (3) Complex cyst of right ovary Current Visit: Yes Status: Acute Hospital Course: Pt presented for [facility] RSO and underwent abdominal supracervical hysterectomy RSO. She did not have complication. Postoperatively her course went well. Her pain is controlled, denies N/V, F/C, CP, SOB, calf pain. She's ablating voiding without difficulty, passing flatus and tolerating regular diet. Incision is clean, dry, intact with zainab. She'll be discharged home postoperative day #2 in stable condition to follow-up with me in one week. Plan - Discharge Summary Discharge Rx Participant: Yes New Discharge Prescriptions: New Ibuprofen [Motrin] 600 mg PO Q6H PRN #30 tab PRN Reason: Mild To Moderate Pain Acetaminophen-Codeine 300-30mg [Tylenol w/codeine #3] 2 each PO Q6HR PRN #24 tab PRN Reason: Severe Pain No Action Cholecalciferol [Vitamin D3 (25 Mcg = 1000 Iu)] 5,000 unit PO DAILY Simvastatin [Zocor] 20 mg PO DAILY Multivitamins, Thera [Multivitamin (formulary)] 1 tab PO DAILY traMADol HCL [Ultram] 50 mg PO Q6HR PRN PRN Reason: Pain Acetaminophen-Codeine 300-30mg [Tylenol w/codeine #3] 1 tab PO Q6H PRN PRN Reason: Pain Ascorbic Acid [Vitamin C] 500 mg PO DAILY Calcium Carbonate [Calcium] 600 mg PO DAILY Discharge Medication List Cholecalciferol [Vitamin D3 (25 Mcg = 1000 Iu)] 5,000 unit PO DAILY 01/08/20 [History] Multivitamins, Thera [Multivitamin (formulary)] 1 tab PO DAILY 01/08/20 [History] Simvastatin [Zocor] 20 mg PO DAILY 01/08/20 [History] Acetaminophen-Codeine 300-30mg [Tylenol w/codeine #3] 1 tab PO Q6H PRN 09/30/20 [History] Ascorbic Acid [Vitamin C] 500 mg PO DAILY 09/30/20 [History] Calcium Carbonate [Calcium] 600 mg PO DAILY 09/30/20 [History] traMADol HCL [Ultram] 50 mg PO Q6HR PRN 09/30/20 [History] Acetaminophen-Codeine 300-30mg [Tylenol w/codeine #3] 2 each PO Q6HR PRN #24 tab 10/06/20 [Rx] Ibuprofen [Motrin] 600 mg PO Q6H PRN #30 tab 10/06/20 [Rx] Follow up Appointment(s)/Referral(s): Amira Beltran DO [Doctor of Osteopathic Medicine] - 1 Week Discharge Disposition: HOME SELF-CARE
== END 2020-10-06 09:25 | disposition home or self-care (01) | DRG 743 ==
LOC: OR 05:41 → 4FBP 09:29 → OR 10:00 → 4FBP 10:00
PROVIDERS: ADMIT Obstetrics & Gynecology; ATTEND Obstetrics & Gynecology
PROC: 0DNE0ZZ Release Large Intestine, Open Approach (ICD-10-PCS; principal; 2020-10-04 07:15)
PROC: 0UT00ZZ Resection of Right Ovary, Open Approach (ICD-10-PCS; principal; 2020-10-04 07:15)
PROC: 0TNB0ZZ Release Bladder, Open Approach (ICD-10-PCS; principal; 2020-10-04 07:15)
PROC: 0UT50ZZ Resection of Right Fallopian Tube, Open Approach (ICD-10-PCS; principal; 2020-10-04 07:15)
PROC: 0UT90ZL Resection of Uterus, Supracervical, Open Approach (ICD-10-PCS; principal; 2020-10-04 07:15)
DX: N80.1 Endometriosis of ovary (principal); E78.5 Hyperlipidemia, unspecified; N83.291 Other ovarian cyst, right side; K66.0 Peritoneal adhesions (postprocedural) (postinfection); F17.210 Nicotine dependence, cigarettes, uncomplicated; Z53.31 Laparoscopic surgical procedure converted to open procedure; Z79.899 Other long term (current) drug therapy; Z90.49 Acquired absence of other specified parts of digestive tract; Z90.721 Acquired absence of ovaries, unilateral; Z98.890 Other specified postprocedural states
CPT/HCPCS: 36415; 76942; 80048; 81025; 85025; 85027; 86850; 86900; 86901; 88307

== ENCOUNTER → 2022-08-03 | Outpatient (CLI) | payer OTHER ==
--- NOTE | 2022-08-03 11:35 | XR ---
EXAMINATION TYPE: XR wrist complete RT DATE OF EXAM: 08/03/2022 COMPARISON: NONE HISTORY: Pain TECHNIQUE: Four views submitted. FINDINGS: The osseous structures are intact. The joint spaces are preserved and there is no acute fracture or dislocation. IMPRESSION: 1. No definite acute fracture or dislocation if symptoms persist, consider MRI.
== END | disposition home or self-care (01) ==
LOC: RADXRMAIN 11:13
PROVIDERS: ATTEND Emergency Medicine
DX: S66.911A Strain of unspecified muscle, fascia and tendon at wrist and hand level, right hand, initial encounter (principal)

== ENCOUNTER → 2022-08-11 | Outpatient (CLI) | payer OTHER ==
--- NOTE | 2022-08-11 11:03 | XR ---
EXAMINATION TYPE: XR wrist complete RT DATE OF EXAM: 08/11/2022 10:54 AM INDICATION: Patient age:Female; 46 years old; Reason for study: S66.911 STRAIN OF UNSP MUSC/FASC/TEND AT S/HND L; [facility]. COMPARISON: Right wrist radiograph 08/03/2022 TECHNIQUE: 4 views of the wrist. Frontal, navicular, lateral, and oblique. FINDINGS: No acute osseous pathology, joint dislocation, or joint effusion. No evidence of any soft tissue swelling is seen. No periosteal reaction or aggressive osseous lesion. IMPRESSION: No acute osseous pathology. No significant change from prior examination.
== END | disposition home or self-care (01) ==
LOC: RADXRMAIN 10:28
PROVIDERS: ATTEND Emergency Medicine
DX: S66.911D Strain of unspecified muscle, fascia and tendon at wrist and hand level, right hand, subsequent encounter (principal)

== ENCOUNTER → 2022-11-23 | Outpatient (CLI) | payer BC ==
--- NOTE | 2022-11-25 20:49 | MM ---
Reason for Exam: Screening (asymptomatic). Last mammogram was performed 3 year(s) and 10 month(s) ago. Patient History: Menarche at age 13. First Full-Term at age 24. Left ovary removed at age 37. Right ovary removed at age 45. Hysterectomy at age 45. Postmenopausal. Patient has history of breast feeding. Risk Values: Janessa 5 year model risk: 0.9%. NCI Lifetime model risk: 9.2%. Prior Study Comparison: 12/13/2015 Bilateral Screening Mammogram, [facility]. 01/22/2019 Bilateral Screening Mammogram, [facility]. Tissue Density: There are scattered fibroglandular densities. Findings: Analyzed By CAD. There is no suspicious group of microcalcifications or new suspicious mass in either breast. Overall Assessment: Negative, BI-RAD 1 Management: Screening Mammogram of both breasts in 1 year. . Patient should continue monthly self-breast exams. A clinical breast exam by your physician is recommended on an annual basis. This exam should not preclude additional follow-up of suspicious palpable abnormalities. Note on Janessa scores and lifetime risk: 1. A Janessa score greater than 3% is considered moderate risk. If this is the case, consider specialist referral to assess eligibility for a risk reducing agent. 2. If overall lifetime risk for the development of breast cancer is 20% or higher, the patient may qualify for future screening with alternating mammogram and breast MRI. Electronically signed and approved by: Hetal Arellano M.D. Radiologist
== END | disposition home or self-care (01) ==
LOC: RADMAMWWP 15:20
PROVIDERS: ATTEND Family Medicine
DX: Z12.31 Encounter for screening mammogram for malignant neoplasm of breast (principal); Z78.0 Asymptomatic menopausal state
CPT/HCPCS: 77063; 77067